=== PATIENT | female | born 1940 | race Two or more races ===

== ENCOUNTER 2019-01-13 10:19 | Outpatient (CLI) | payer OTHER | END 2019-01-13 14:43 | disposition home or self-care (01) | LOC: TOM 10:19 | DX: K62.1 Rectal polyp (principal) ==

== ENCOUNTER 2019-12-09 10:36 | Outpatient (CLI) | payer OTHER | END 2019-12-09 11:20 | disposition home or self-care (01) | LOC: NUCLEAR 10:36 | DX: I20.1 Angina pectoris with documented spasm (principal) ==

== ENCOUNTER 2020-05-30 07:00 | Day surgery (SDC) | payer OTHER | END 2020-05-30 10:25 | disposition home or self-care (01) | LOC: AMB-ENDOS 07:00 | PROVIDERS: ATTEND Surgery | DX: D12.0 Benign neoplasm of cecum (principal); D12.2 Benign neoplasm of ascending colon; D12.3 Benign neoplasm of transverse colon; Z01.818 Encounter for other preprocedural examination; K64.8 Other hemorrhoids ==